=== PATIENT | male | born 1995 | race Caucasian/White ===

== ENCOUNTER 2018-04-14 22:45 | Emergency (ER) | payer OTHER ==
[2018-04-14 22:59] VITALS: BP 140/88; PULSE 93; RESP 22; TEMP 98.2; O2SAT 98
== END 2018-04-15 00:21 | disposition left against medical advice (07) | DRG 379 ==
LOC: ED 22:45
DX: K62.5 Hemorrhage of anus and rectum (principal); R10.9 Unspecified abdominal pain; Z53.21 Procedure and treatment not carried out due to patient leaving prior to being seen by health care provider
CPT/HCPCS: 99282